=== PATIENT | female | born 1960 | race Caucasian/White ===

== ENCOUNTER → 2019-02-18 | Outpatient (REF) | payer BC ==
[~2019-02-18] MED LIST: COUM10TA; COUM1TAB16; MOTR200T4
[2019-02-18 19:12] LABS: PROLACTIN 7.7 NG/ML
== END ==
LOC: M LAB REF 17:05
PROVIDERS: ATTEND Internal Medicine
DX: L65.9 Nonscarring hair loss, unspecified (principal)

== ENCOUNTER → 2019-12-12 | Outpatient (REF) | payer BC | LOC: M LAB REF 18:27 | PROVIDERS: ATTEND Physician Assistant | DX: L57.0 Actinic keratosis (principal) ==

== ENCOUNTER → 2020-12-20 | Outpatient (REF) | payer BC | LOC: M LAB REF 16:34 | PROVIDERS: ATTEND Physician Assistant Medical | DX: N39.0 Urinary tract infection, site not specified (principal) ==

== ENCOUNTER → 2021-08-22 | Outpatient (REF) | payer BC ==
[2021-08-23 11:17] LABS: BACTERIA, URINE AUTO NEGATIVE (NEGATIVE); RBC, URINE AUTO 1 /HPF (0-3); SQUAMOUS EPITHELIAL CELL UR AU 2 /HPF (0-6); WBC, URINE AUTO 1 /HPF (0-3)
== END ==
LOC: M LAB REF 10:23
PROVIDERS: ATTEND Registered Nurse
DX: R39.12 Poor urinary stream (principal); R31.9 Hematuria, unspecified

== ENCOUNTER → 2021-09-05 | Outpatient (REF) | payer BC ==
[2021-09-05 17:39] LABS: APPEARANCE, URINE CLEAR (CLEAR); BACTERIA, URINE AUTO NEGATIVE (NEGATIVE); BILIRUBIN, URINE AUTO NEGATIVE (NEGATIVE); BLOOD, URINE BLOOD 1+ (NEGATIVE); COLOR, URINE YELLOW (YELLOW); GLUCOSE, URINE (UA) AUTO NEGATIVE (NEGATIVE); KETONE, URINE AUTO NEGATIVE (NEGATIVE); LEUKOCYTE ESTERASE, URINE AUTO TRACE (NEGATIVE); MUCUS, URINE SMALL (NEGATIVE); NITRITE, URINE AUTO NEGATIVE (NEGATIVE); PROTEIN, URINE AUTO NEGATIVE (NEGATIVE); RBC, URINE AUTO 1 /HPF (0-3); SPECIFIC GRAVITY URINE AUTO 1.017 (1.002-1.035); SQUAMOUS EPITHELIAL CELL UR AU 3 /HPF (0-6); UROBILINOGEN, URINE AUTO 0.2 mg/dL (0.0-2.0); WBC, URINE AUTO 1 /HPF (0-3)
== END ==
LOC: M SMT 16:39
PROVIDERS: ATTEND Nurse Practitioner Women's Health
DX: R39.12 Poor urinary stream (principal)

== ENCOUNTER 2023-01-18 18:17 | Emergency (ER) | payer BC ==
[~2023-01-18] VITALS: Ht 160 cm; Wt 61.4 kg
[2023-01-18 23:20] VITALS: BP 138/77; TEMP 97.7; O2SAT 99
== END 2023-01-18 23:20 | disposition home or self-care (01) ==
LOC: M ED 18:17
DX: S93.401A Sprain of unspecified ligament of right ankle, initial encounter (principal); X50.0XXA Overexertion from strenuous movement or load, initial encounter; Y92.410 Unspecified street and highway as the place of occurrence of the external cause; Y93.89 Activity, other specified; Y99.8 Other external cause status; I82.1 Thrombophlebitis migrans

== ENCOUNTER → 2023-04-27 | Outpatient (REF) | payer BC | LOC: M LAB REF 16:16 | PROVIDERS: ATTEND Internal Medicine | DX: Z79.899 Other long term (current) drug therapy (principal); Z80.8 Family history of malignant neoplasm of other organs or systems ==

== ENCOUNTER → 2023-06-09 | Outpatient (CLI) | payer BC ==
[2023-06-09 15:18] LABS: BASO # 0.1 10^3/uL (0.0-0.2); BASO % 0.8 % (0.0-1.0); EOS # 0.1 10^3/uL (0.0-0.5); EOS % 1.5 % (0.0-3.0); HEMATOCRIT 39.6 % (36.0-47.0); HEMOGLOBIN 12.8 g/dl (12.0-15.5); LYMPH % 32.9 % (24.0-44.0); MEAN CORPUSCULAR HEMOGLOBIN 30.8 pg (27.0-33.0); MEAN CORPUSCULAR HGB CONC 32.3 g/dl (32.0-36.5); MEAN CORPUSCULAR VOLUME 95.4 fl (80.0-96.0); MONO # 0.5 10^3/uL (0.0-0.8); MONO % 7.7 % (2.0-8.0); NEUTROPHILS # 3.4 10^3/uL (1.5-8.5); NEUTROPHILS % 56.9 % (36.0-66.0); PLATELET COUNT, AUTOMATED 252 10^3/uL (150-450); RED BLOOD COUNT 4.15 10^6/uL (4.00-5.40)
== END ==
LOC: M PLALAB 11:26
PROVIDERS: ATTEND Internal Medicine Hematology
DX: I81 Portal vein thrombosis (principal); I82.90 Acute embolism and thrombosis of unspecified vein

== ENCOUNTER → 2023-09-28 | Outpatient (REF) | payer BC ==
[2023-09-30 20:08] LABS: CYCLIC CITRULLINATED PEPTIDE 10 units (0-19)
== END ==
LOC: M LAB REF 16:10
PROVIDERS: ATTEND Internal Medicine
DX: M25.50 Pain in unspecified joint (principal)

== ENCOUNTER → 2024-02-24 | Outpatient (REF) | payer MEDICARE, BC | LOC: M SFHCDERM 17:34 | PROVIDERS: ATTEND Physician Assistant | DX: L82.1 Other seborrheic keratosis (principal) ==

== ENCOUNTER → 2024-03-28 | Outpatient (CLI) | payer MEDICARE, BC | LOC: M WUC 12:33 | PROVIDERS: ATTEND Nurse Practitioner Family | DX: M79.671 Pain in right foot (principal); S92.514A Nondisplaced fracture of proximal phalanx of right lesser toe(s), initial encounter for closed fracture; X58.XXXA Exposure to other specified factors, initial encounter; Y92.9 Unspecified place or not applicable ==

== ENCOUNTER → 2024-04-29 | Outpatient (REF) | payer MEDICARE, BC | LOC: M LAB REF 16:45 | PROVIDERS: ATTEND Internal Medicine | DX: N39.0 Urinary tract infection, site not specified (principal) ==

== ENCOUNTER → 2024-08-26 | Outpatient (CLI) | payer MEDICARE, BC | LOC: M PLAIMG 10:28 | PROVIDERS: ATTEND Internal Medicine | DX: M25.512 Pain in left shoulder (principal) ==

== ENCOUNTER → 2024-09-07 | Outpatient (CLI) | payer MEDICARE, BC ==
[~2024-09-07] MED LIST changes: +GASTROGRAFIN SOLUTION 30ML ONE; +ISOVUE-370 76% 100ML VIAL ONE
== END ==
LOC: M PLAIMG 08:29
PROVIDERS: ATTEND Internal Medicine
DX: K76.89 Other specified diseases of liver (principal)
CPT/HCPCS: 74177; Q9963; Q9967

== ENCOUNTER → 2025-03-22 | Outpatient (CLI) | payer MEDICARE, BC ==
[~2025-03-22] MED LIST changes: -GASTROGRAFIN SOLUTION 30ML ONE; -ISOVUE-370 76% 100ML VIAL ONE
== END ==
LOC: M RAD 08:35
PROVIDERS: ATTEND Internal Medicine
DX: K76.89 Other specified diseases of liver (principal); R10.11 Right upper quadrant pain; R12 Heartburn

== ENCOUNTER → 2025-04-28 | Outpatient (CLI) | payer MEDICARE, BC ==
[~2025-04-28] MED LIST changes: +E-Z-GAS II EFFERVESCENT PACKET (SODIUM BICARB./CITRIC ACID/SIMETHICONE) As Ordered ONE; +E-Z-HD 98% w/w 340 GM SUSP BTL As Ordered ONE; +E-Z-PAQUE 96% w/w SUSP 176 GM BTL As Ordered ONE
== END ==
LOC: M RAD 10:22
PROVIDERS: ATTEND Internal Medicine
DX: R10.11 Right upper quadrant pain (principal)